=== PATIENT | female | born 1960 | race Caucasian/White ===

== ENCOUNTER 2018-10-08 07:38 | Emergency (ER) | payer OTHER, SELFPAY ==
[2018-10-08 07:48] VITALS: BP 133/75; PULSE 87; RESP 20; TEMP 36.4; O2SAT 100
--- NOTE | 2018-10-08 07:53 | ED.NEUROSD ---
HPI - Neuro Symptoms/Deficit General Chief Complaint: Neuro Symptoms/Deficit Stated Complaint: head pressure, neuro problems, tingling in legs Time Seen by Provider: 10/08/18 07:44 Source: patient Mode of arrival: ambulatory Limitations: no limitations History of Present Illness HPI Narrative: Patient is a 58-year-old female who presents with head pressure. She says she has had ongoing head pressure for 6-8 weeks. She has had some vision changes but actually went to an mounter sousaphones who diagnosed her with vitreous humor, she states her vision has remains the same. She denies any weakness in her extremities. Today she woke up with bilateral numbness and weakness in her legs. She has no back pain. she has no speech difficulty or facial drooping. She was scheduled for an outpatient MR unfortunately the paperwork did not go through. She has been quite anxious and she is quite afraid of what is might be happening in her brain. She is to take Ativan and Flexeril for her a number of years but stopped both of those by May of 2018. She was started on BuSpar 3 days ago. Onset (ago): week(s) Related Data Home Medications Medication Instructions Recorded Confirmed 5-MTHF PO 05/26/18 05/26/18 C-estriol TOP 05/26/18 05/26/18 Migraine Prevention Formula TOP 05/26/18 05/26/18 cholecalciferol (vitamin D3) 2,000 2,000 unit PO DAILY 05/26/18 05/26/18 unit capsule disopyramide phosphate 100 mg 100 mg PO TID cap 05/26/18 05/26/18 capsule magnesium glycinate 100 mg tablet 125 mg PO DAILY tab 05/26/18 05/26/18 selenium 200 mcg tablet 200 mcg PO DAILY 05/26/18 05/26/18 vitamin B complex tablet 1 tab PO DAILY 05/26/18 05/26/18 zinc gluconate 30 mg tablet 30 mg PO DAILY tab 05/26/18 05/26/18 buspirone 5 mg PO TID 10/08/18 10/08/18 levothyroxine 50 mcg PO DAILY 10/08/18 10/08/18 Previous Rx's Medication Instructions Recorded dihydroergotamine 0.5 mg/pump act. 1 spray NASAL .COMPLEX #8 ml 05/26/18 (4 mg/mL) nasal spray naratriptan 2.5 mg tablet 2.5 mg PO .COMPLEX PRN #12 tab 06/12/18 Allergies Allergy/AdvReac Type Severity Reaction Status Date / Time mendez AdvReac Mild GI upset Verified 05/26/18 08:55 lactase [From Dairy Aid] AdvReac Mild GI Verified 05/26/18 08:55 legumes AdvReac Mild GI upset Verified 05/26/18 08:55 Review of Systems Review of Systems ROS Unobtainable: All systems reviewed & are unremarkable except as noted in HPI and below Constitutional Denies chills, Denies fever(s), Reports headache(s), Denies lethargy and Denies weakness Eyes Denies change in vision, Denies eye discharge, Denies irritation and Denies loss of vision ENT Ears, Nose, Mouth, and Throat: Denies change in voice, Reports headache(s), Denies neck pain and Denies sore throat Cardiovascular Denies chest pain, Denies irregular heart rhythm, Denies lightheadedness, Denies palpitations, Denies dyspnea, Denies dyspnea on exertion and Denies orthopnea Respiratory Denies cough, Denies dyspnea, Denies dyspnea on exertion and Denies wheezing Gastrointestinal Gastrointestinal: Denies abdominal pain, Denies change in bowel habits, Denies diarrhea, Denies nausea and Denies vomiting Musculoskeletal Denies neck pain and Reports numbness Integumentary/Breasts Denies pruritus, Denies erythema, Denies rash and Denies wounds Neurologic Reports as per HPI, Reports headache(s), Denies loss of vision, Reports numbness and Denies weakness Endocrine Denies palpitations Allergic/Immunologic Denies wheezing [facility] Medical History Anxiety (Acute) Social History Smoking Status: Never smoker Social History Smoking Status: Never smoker Exam Initial Vital Signs Initial Vital Signs: Vital Signs Temperature 97.5 F L 10/08/18 07:48 Pulse Rate 87 10/08/18 07:48 Respiratory Rate 20 10/08/18 07:48 Blood Pressure 133/75 10/08/18 07:48 Pulse Oximetry 100 10/08/18 07:48 GENERAL: Alert anxious female and in [no acute] distress. HEENT: Head atraumatic,EOMI, pupils reactive face symmetric CARDIOVASCULAR: Regular rate and rhythm without murmurs, rubs or gallops. RESPIRATORY: Breath sounds equal bilaterally, no wheezes rales or rhonchi. ABDOMEN: Soft, nontender. Normoactive bowel sounds all 4 quadrants. No guarding or rebound.s EXTREMITIES: Normal range of motion, no clubbing or edema. Neurovascularly intact NEUROLOGICAL: Alert and oriented x4.Normal gait and speech. Cranial nerves II through XII grossly intact. maintenance of way superintendent strength equal bilaterally able push and pull equally good [id number] bilaterally. Lower extremities sensation intact equally. Strength equal in lower extremities. Peripheral pulses intact. SKIN: Warm, dry, no laceration, no petechiae, no rashes or lesions. Scores NIH Stroke Scale Level of Conciousness: Alert, keenly responsive Ask month/age: Answers both questions correctly. Open/close eyes, close hand: Performs both tasks correctly Best gaze horizontal: Normal Visual howe: No visual loss Facial palsy: Normal symetrical movement Left arm drift: No drift for full 10 sec Right arm drift: No drift for full 10 sec Left leg drift: No drift for full 10 sec Right leg drift: No drift for full 10 sec Limb ataxia: Absent Sensory on face/arms/legs: Normal, no sensory loss Best language: No aphasia, normal Dysarthria: Normal Extinction or inattention: No abnormality Total NIH Stroke scale score: 0 Course Orders Ordered: ED Orders 10/08/18 09:10 Complete Blood Count AUTO DIFF Stat Comprehensive Metabolic Panel Stat Vital Signs - 8 hr 10/08/18 07:48 10/08/18 11:30 10/08/18 11:35 Temperature 97.5 F L Pulse Rate 87 79 71 Respiratory Rate 20 16 20 Blood Pressure 133/75 120/81 Blood Pressure [Right Arm] 120/77 Pulse Oximetry 100 98 99 MDM - Neuro Symptoms/Deficit Lab Data Result diagrams: 10/08/18 09:10 10/08/18 09:10 Lab Results 10/08/18 10/08/18 Range/Units 09:10 09:10 WBC 8.6 (4.5-11.0) X10^3/uL RBC 4.61 (4.0-5.2) X10^6/uL Hgb 14.1 (12.0-16.0) g/dL Hct 41.6 (36-46) % MCV 90.2 (80-100) fL MCH 30.5 (26-34) PG MCHC 33.8 (30-36) % RDW 13.8 (11.6-14.8) % Plt Count 194 (150-400) X10^3/uL Neut % (Auto) 65.1 (50-75) % Lymph % (Auto) 25.1 (25-40) % [place] % (Auto) 9.0 (3-14) % Eos % (Auto) 0.2 L (2-4) % Baso % (Auto) 0.6 (0-2) % Neut # (Auto) 5600 (4795-1287) /uL Lymph # (Auto) 2200 (2382-1446) /uL [place] # (Auto) 800 (0-900) /uL Eos # (Auto) 0 (0-450) /uL Baso # (Auto) 100 (0-100) /uL Sodium 142 (137-145) mmol/L Potassium 3.6 (3.4-5.1) mmol/L Chloride 103 (98-107) mmol/L Carbon Dioxide 28 (22-32) mmol/L BUN 17 (7-17) mg/dL Creatinine 0.70 (0.52-1.04) mg/dL Estimated GFR > 60.0 (>60) mL/min BUN/Creatinine Ratio 24.3 H (6-22) Glucose 95 (70-100) mg/dL Calcium 9.7 (8.4-10.2) mg/dL Total Bilirubin 0.4 (0.2-1.3) mg/dL AST 30 (14-36) IU/L ALT 28 (9-52) IU/L Alkaline Phosphatase 65 (38-126) U/L Total Protein 7.6 (6.3-8.2) g/dL Albumin 4.9 (3.5-5.0) g/dL Globulin 2.7 (1.7-4.1) g/dL Albumin/Globulin Ratio 1.8 (1.0-2.8) Imaging Data CT scan - head: Radiologist's impression: A [place] report called to me by radiologist 11:[address] no acute intracranial hemorrhage. MDM Narrative Medical decision making narrative: [facility] CT scanner is down. Patient has been having ongoing head pressure for 6-8 weeks. In some tingling in both legs no back pain. she agrees to CT. sHe is neurologically intact While waiting in the ED patient was actually able to schedule an outpatient MRI at 3:00 p.m. today. Discharge Plan Departure Patient Disposition: Home Clinical Impression: Headache Qualifiers: Headache type: unspecified Headache chronicity pattern: chronic headache Intractability: not intractable Qualified Code(s): R51 - Headache Discharge Date/Time: 10/08/18 11:47 Interventions: ED Discharge Assessment Last Done: 10/08/18 11:35 Instructions: DI for Headache Activity Restrictions/Additional Instructions: *You have been diagnosed with headache *What to do: At this time blood work and head CT are negative. Her scheduled for an outpatient MRI today, I still recommend you get this. *Continue to take medications as directed *Follow up with your primary care provider in 2-3 days *Return to ER if you should have worsening headache numbness, weakness, tingling or any new, worsening or concerning symptoms Prescriptions: No Action naratriptan 2.5 mg tablet 2.5 mg PO .COMPLEX PRN (Reason: migraine headache) Qty: 12 RF: 11 buspirone 5 mg tablet 5 mg PO TID RF: 0 levothyroxine 25 mcg tablet 50 mcg PO DAILY RF: 0 5-MTHF PO RF: 0 disopyramide phosphate 100 mg capsule 100 mg PO TID RF: 0 selenium 200 mcg tablet 200 mcg PO DAILY RF: 0 zinc gluconate 30 mg tablet 30 mg PO DAILY RF: 0 vitamin B complex [B Complex-Vitamin B12] tablet 1 tab PO DAILY RF: 0 cholecalciferol (vitamin D3) 2,000 unit capsule 2,000 unit PO DAILY RF: 0 magnesium glycinate 100 mg tablet 125 mg PO DAILY RF: 0 C-estriol TOP RF: 0 Migraine Prevention Formula TOP RF: 0 dihydroergotamine [Migranal] 0.5 mg/pump act. (4 mg/mL) spray,non-aerosol 1 spray NASAL .COMPLEX Qty: 8 RF: 11 Referrals: Viktoria Marie ARNP [Primary Care Provider] -
[2018-10-08 09:22] LABS: Add Manual Diff / Slide Review NO; Basophils Absolute Auto 100 /uL (0-100); Basophils Percent Auto 0.6 % (0-2); Eosinophils Absolute Auto 0 /uL (0-450); Eosinophils Percent Auto 0.2 % (2-4); Hematocrit 41.6 % (36-46); Hemoglobin 14.1 g/dL (12.0-16.0); Lymphocytes Absolute Auto 2200 /uL (1100-4500); Lymphocytes Percent Auto 25.1 % (25-40); Mean Corpuscular HGB Conc 33.8 % (30-36); Mean Corpuscular Hemoglobin 30.5 PG (26-34); Mean Corpuscular Volume 90.2 fL (80-100); Monocytes Absolute Auto 800 /uL (0-900); Neutrophils Absolute Auto 5600 /uL (1500-7000); Neutrophils Percent Auto 65.1 % (50-75); Platelet Count 194 X10^3/uL (150-400); Red Blood Cell Count 4.61 X10^6/uL (4.0-5.2); Red Cell Distribution Width 13.8 % (11.6-14.8); White Blood Cell Count 8.6 X10^3/uL (4.5-11.0)
[2018-10-08 09:36] LABS: Alanine Aminotransferase 28 IU/L (9-52); Albumin 4.9 g/dL (3.5-5.0); Albumin Globulin Ratio 1.8 (1.0-2.8); Alkaline Phosphatase 65 U/L (38-126); Aspartate Aminotransferase 30 IU/L (14-36); BUN Creatinine Ratio 24.3 (6-22); Bilirubin Total 0.4 mg/dL (0.2-1.3); Blood Urea Nitrogen 17 mg/dL (7-17); Calcium 9.7 mg/dL (8.4-10.2); Carbon Dioxide 28 mmol/L (22-32); Chloride 103 mmol/L (98-107); Estimated Glomerular Filt Rate > 60.0 mL/min (>60); Globulin 2.7 g/dL (1.7-4.1); Glucose 95 mg/dL (70-100); HEMOLYSIS 19 (0-50); Potassium 3.6 mmol/L (3.4-5.1); Sodium 142 mmol/L (137-145); Total Protein 7.6 g/dL (6.3-8.2)
--- NOTE | 2018-10-08 09:41 | PC.NURSE ---
To [facility] for CT scan as CT in hospital down
[2018-10-08 11:30] VITALS: BP 120/77; PULSE 79; RESP 16; O2SAT 98
[2018-10-08 11:35] VITALS: BP 120/81; PULSE 71; RESP 20; O2SAT 99
== END 2018-10-08 11:47 | disposition home or self-care (01) ==
PROVIDERS: Emergency Provider Emergency Medicine; PCP Nurse Practitioner Family
DX: R51 Headache (principal); R20.2 Paresthesia of skin; R53.1 Weakness
CPT/HCPCS: 36591; 70553; 80053; 85025; 99282; 99283; 99291

== ENCOUNTER → 2018-10-08 14:11 | Outpatient (CLI) | payer OTHER, SELFPAY ==
--- NOTE | 2018-10-08 | DI.MRI.S_ITS ---
PROCEDURE: MR HEAD/BRAIN WO/W CON INDICATIONS: Headache TECHNIQUE: Noncontrast axial T1 spin echo, axial T2 fast spin echo, sagittal and axial FLAIR, coronal T2 fast spin echo, axial gradient echo, axial diffusion and ADC through the brain. After the administration of contrast, axial and coronal 3D VIBE or T1 spin echo with fat saturation through the brain. COMPARISON: None. FINDINGS: Image quality: Excellent. CSF Spaces: Basal cisterns are patent. No extra-axial fluid collections. Ventricles are normal in size and shape. Brain: No midline shift. No intracranial bleeds or masses. No abnormal intracranial enhancement. The brainstem appears normal. Diffusion-weighted images demonstrate no acute ischemic insults. No chronic ischemic insults. Normal intravascular flow voids are present. Skull and face: Calvarial marrow is normal in signal. Orbits appear normal. Sinuses: Sinuses and mastoids appear clear. IMPRESSION: Unremarkable intracranial study, without an imaging explanation found for the patient's presenting history of headache. No masses or abnormal enhancement can be seen. Dictated by: Solomon Erickson M.D. on 10/08/2018 at 14:43 Approved by: Solomon Erickson M.D. on 10/08/2018 at 14:44
== END ==
PROVIDERS: PCP Nurse Practitioner Family; Visit Provider Nurse Practitioner Family
DX: R51 Headache (principal)
CPT/HCPCS: 70553

== ENCOUNTER → 2020-01-13 13:02 | Outpatient (CLI) | payer BC, SELFPAY ==
--- NOTE | 2020-01-13 13:31 | DI.US.S_ITS ---
PROCEDURE: US THYROID INDICATIONS: ABNORMAL LABS TECHNIQUE: Real-time scanning was performed of the thyroid gland, with image documentation. COMPARISON: None. FINDINGS: Right: Thyroid lobe measures 2.7 x 1.0 x 0.5 cm, and is homogeneous in echotexture. Subcentimeter nodule. Left: Thyroid lobe measures 2.5 x 0.8 x 0.7 cm, and is homogenous in echotexture. Sub 5 mm nodule. Isthmus: 8 mm thick. IMPRESSION: Bilateral subcentimeter nodules. Given the small size, no follow-up is warranted. ACR TI-RADS definitions and recommendations: TI-RADS 1 (benign): 0 points. FNA not needed. TI-RADS 2 (not suspicious): 2 points. FNA not needed. TI-RADS 3 (mildly suspicious): 3 points. * FNA if 2.5 cm or larger, follow up if 1.5 cm or larger (at 1, 3, and 5 years). TI-RADS 4 (moderately suspicious): 4-6 points. * FNA if 1.5 cm or larger, follow up if 1 cm or larger (at 1, 2, 3, and 5 years). TI-RADS 5 (highly suspicious): 7 points or more. * FNA if 1 cm or larger, follow up if 0.5 cm or larger (every year for 5 years). Dictated by: Wilman Carney [facility] Interpreted: Delvin Perdomo MD on 01/13/2020 at 13:49 Approved by: Delvin Perdomo M.D. on 01/14/2020 at 12:06
== END ==
PROVIDERS: PCP Nurse Practitioner Family; Referring Provider Nurse Practitioner Family; Visit Provider Nurse Practitioner Family
DX: R79.89 Other specified abnormal findings of blood chemistry (principal); E04.2 Nontoxic multinodular goiter
CPT/HCPCS: 76536

== ENCOUNTER 2021-08-21 07:39 | Emergency (ER) | payer BC, SELFPAY ==
[2021-08-21 07:51] VITALS: BP 139/70; PULSE 96; RESP 18; TEMP 36.6; O2SAT 98; BMI 23.1
--- NOTE | 2021-08-21 07:58 | DI.RAD.S_ITS ---
PROCEDURE: XR SHOULDER LT MIN 2V INDICATIONS: left shoulder pain TECHNIQUE: 3 views of the shoulder were acquired. COMPARISON: None. FINDINGS: Bones: No fractures or dislocations. No suspicious bony lesions. Visualized ribs appear intact. Moderate acromioclavicular degenerative narrowing. No erosions. Soft tissues: No suspicious soft tissue calcifications. Calcific tendinitis is present. IMPRESSION: Calcific tendinitis. Moderate acromioclavicular arthritic change. Dictated by: Rosa Maria Jnoes M.D. on 08/21/2021 at 8:37 Approved by: Rosa Maria Jones M.D. on 08/21/2021 at 8:38
--- NOTE | 2021-08-21 07:59 | ED.UPPEXIN ---
HPI - Extremity Injury (Upper) General Chief Complaint: Extremity Injury, Upper Stated Complaint: Left arm/shoulder pain, limited motion Time Seen by Provider: 08/21/21 07:47 Source: patient Mode of arrival: Ambulatory Limitations: no limitations History of Present Illness HPI narrative: This is a 61-year-old female who comes emergency department with complaint left shoulder pain that has been intermittent over the years it has been worse starting on Saturday. She describes it as being over the joint and upper deltoid region. She has increased pain with any kind of movement or palpation at that area. No warmth, redness or or swelling has been appreciated. She states that the pain does radiate down her arm. She does not have any paresthesias, numbness or weakness that she appreciates. 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 She has tried Tylenol and ibuprofen but has been trying to avoid ibuprofen. She has also been using active fixation patch to the area which helps with the burning sensation. He occasionally gets some discomfort in her neck but not persistently or related to this. She states she is having some pain and then slept funny on it the other night which seemed to exacerbate everything. She has not had any other trauma that she recalls. She has not had any prior injuries or surgeries. She denies any radiation to her chest. No shortness of breath. No fevers or chills. Denies any other symptoms. She states she has a history of migraines, denies daily medications. She has had a hysterectomy but denies other surgeries. No tobacco, alcohol or illicit. She is accompanied by her spouse. Related Data Home Medications Medication Instructions Recorded Confirmed 5-MTHF PO 05/26/18 05/26/18 C-estriol TOP 05/26/18 05/26/18 Migraine Prevention Formula TOP 05/26/18 05/26/18 cholecalciferol (vitamin D3) 50 2,000 unit PO DAILY 05/26/18 05/26/18 mcg (2,000 unit) capsule disopyramide phosphate 100 mg 100 mg PO TID cap 05/26/18 05/26/18 capsule magnesium glycinate 100 mg tablet 125 mg PO DAILY tab 05/26/18 05/26/18 selenium 200 mcg tablet 200 mcg PO DAILY 05/26/18 05/26/18 vitamin B complex (B 1 tab PO DAILY 05/26/18 05/26/18 Complex-Vitamin B12) zinc gluconate 30 mg tablet 30 mg PO DAILY tab 05/26/18 05/26/18 buspirone 5 mg tablet 5 mg PO TID 10/08/18 10/08/18 levothyroxine 25 mcg tablet 50 mcg PO DAILY 10/08/18 10/08/18 Previous Rx's Medication Instructions Recorded dihydroergotamine 0.5 mg/pump act. 1 spray NASAL .COMPLEX #8 ml 05/26/18 (4 mg/mL) nasal spray (Migranal) naratriptan 2.5 mg tablet 2.5 mg PO .COMPLEX PRN #12 tab 06/12/18 hydrocodone 5 mg-acetaminophen 325 1 tab PO Q6H PRN #10 tab 08/21/21 mg tablet lidocaine 5 % topical patch 1 patch TOPICAL DAILY PRN #15 ea 08/21/21 Allergies Allergy/AdvReac Type Severity Reaction Status Date / Time mendez AdvReac Mild GI upset Verified 05/26/18 08:55 lactase [From Dairy Aid] AdvReac Mild GI Verified 05/26/18 08:55 legumes AdvReac Mild GI upset Verified 05/26/18 08:55 Review of Systems Review of Systems ROS Unobtainable: All systems reviewed & are unremarkable except as noted in HPI and below Patient History Medical History (Updated 08/21/21 @ 09:08 by Poornima Perales DO) Anxiety Social History Smoking Status: Never smoker Smoking Status: Never smoker alcohol intake frequency: 0-2 drinks per day Substance Use Type: does not use Exam Narrative Exam Narrative: GENERAL: Alert and oriented x three, female in mild distress. HEENT: Head normocephalic, atraumatic, EOMI, pupils reactive, face symmetric, moist mucous membranes NECK: Supple, full range of motion CARDIOVASCULAR: Regular rate and rhythm without murmurs, rubs or gallops. RESPIRATORY: Breath sounds equal bilaterally, no wheezes rales or rhonchi. ABDOMEN: Soft, nontender. Normoactive bowel sounds all 4 quadrants. No guarding or rebound, rigidity, no mass : No CVA tenderness EXTREMITIES: Patient left shoulder appears slightly lower than the right but no changes the axial AC joint. She has tenderness over the left AC joint particularly on the posterior aspect. There is no warmth, erythema or swelling appreciated no effusion. Patient has increased pain particularly with external internal rotation. She does not have any other bony tenderness on exam. No swelling, no edema. 2+ radial pulses bilaterally, roll inspector are equal bilaterally and 5/5 muscle strength of upper extremities. Neurovascularly intact NEUROLOGICAL: Cranial nerves II through XII grossly intact. Moving all extremities SKIN: Warm, dry, no petechiae, no rashes or lesions appreciated. Initial Vital Signs Initial Vital Signs: Vital Signs Temperature 97.9 F 08/21/21 07:51 Pulse Rate 96 H 08/21/21 07:51 Respiratory Rate 18 08/21/21 07:51 Blood Pressure 139/70 08/21/21 07:51 Pulse Oximetry 98 08/21/21 07:51 Course Orders Ordered: Discontinued Medications Ketorolac Tromethamine (Ketorolac 30 Mg/Ml Vial) 30 mg IM NOW ONE Stop: 08/21/21 07:59 Last Admin: 08/21/21 08:24 Dose: 30 mg Documented by: VIKAS Vital Signs Vital signs: Vital Signs - 8 hr 08/21/21 07:51 Temperature 97.9 F Pulse Rate 96 H Respiratory Rate 18 Blood Pressure 139/70 Pulse Oximetry 98 MDM - Extremity Injury (Upper) MDM Narrative Medical decision making narrative: 61-year-old female with left shoulder/arm pain which is reproducible on exam and by herself. Patient has had intermittent symptoms but worsened over the last 2-3 days sleeping on it awkwardly. Patient has tried capsaicin patches. She has had minimal improvement. X-ray shows calcific tendinitis type changes and arthritic changes she is tender over the biceps tendon with external internal rotation and plan for sling although caution to continue with range of motion, lidocaine patches and prednisone see if this is improved her symptoms along with follow-up with primary for PT and orthopedic follow-up if not continuing to improve. Signs and symptoms and return precautions discussed. Discharge Plan Departure Patient Disposition: Home Clinical Impression: Left shoulder pain, Calcific shoulder tendinitis Instructions: Calcific Tendonitis of the Shoulder, DI for Shoulder Pain Activity Restrictions/Additional Instructions: Follow-up for recheck if your symptoms persist. Follow-up with your physician you may find PT helpful. You can also follow-up with orthopedic surgery and referral is included below. Your x-ray today shows changes consistent with a calcific tendinitis as well as some arthritic changes within the shoulder. You may wear sling as needed but make sure to continue with range of motion at of your shoulder daily to prevent frozen shoulder. You can use lidocaine patch to the affected area daily. You can try oral prednisone, take until completed. You may take Tylenol up to a 1000 mg every 8 hours or narcotic pain medication as prescribed. Prescription sent to [facility]. Please return for fevers, new redness, warmth or swelling, rapidly worsening symptoms, numbness or weakness, decrease or loss of electronic security technician, swelling of the arm, new chest pain shortness of breath lightheadedness or passing out or other new or concerning symptoms. Prescriptions: New hydrocodone-acetaminophen 5-325 mg tablet 1 tab PO Q6H PRN (Reason: pain) Qty: 10 0RF lidocaine 5 % adhesive patch,medicated 1 patch topical DAILY PRN (Reason: pain) Qty: 15 0RF Rx Instructions: leave on most painful area for up to 12 hrs No Action naratriptan 2.5 mg tablet 2.5 mg PO .COMPLEX PRN (Reason: migraine headache) Qty: 12 11RF Rx Instructions: 2.5 mg PO 1 at onset, may repeat after 2 hours PRN; buspirone 5 mg tablet 5 mg PO TID 0RF levothyroxine 25 mcg tablet 50 mcg PO DAILY 0RF 5-MTHF PO 0RF disopyramide phosphate 100 mg capsule 100 mg PO TID 0RF selenium 200 mcg tablet 200 mcg PO DAILY 0RF zinc gluconate 30 mg tablet 30 mg PO DAILY 0RF vitamin B complex [B Complex-Vitamin B12] tablet 1 tab PO DAILY 0RF cholecalciferol (vitamin D3) 2,000 unit capsule 2,000 unit PO DAILY 0RF magnesium glycinate 100 mg tablet 125 mg PO DAILY 0RF C-estriol TOP 0RF Migraine Prevention Formula TOP 0RF dihydroergotamine [Migranal] 0.5 mg/pump act. (4 mg/mL) spray,non-aerosol 1 spray NASAL .COMPLEX Qty: 8 11RF Rx Instructions: One spray each nostril and repeat in 15 min. Referrals: Viktoria Marie ARNP [Primary Care Provider] - Nick Bazan MD [Physician] -
[2021-08-21] MEDS: KETOROLAC 30 MG/ML VIAL IM (08:24)
== END 2021-08-21 09:31 | disposition home or self-care (01) ==
PROVIDERS: Emergency Provider Emergency Medicine; PCP Nurse Practitioner Family
DX: M25.512 Pain in left shoulder (principal); M65.812 Other synovitis and tenosynovitis, left shoulder
CPT/HCPCS: 73030; 96372; 99283; 99284; J1885